=== PATIENT | female | born 1975 | race Caucasian/White ===

== ENCOUNTER 2017-05-09 00:18 | Emergency (ER) | payer MEDICAID ==
[~2017-05-09] VITALS: Ht 170.2 cm; Wt 68.0 kg
[2017-05-09 00:26] VITALS: BP_SYST 97
--- NOTE | 2017-05-09 01:06 | NUR ---
Patient to ER bed 6 to gown for evaluation. Side rails up. Report given to DARIA FONSECA.
--- NOTE | 2017-05-09 01:11 | NUR ---
Patient to ED for evaluation of flu-like symptoms, patient able to ambulate without difficulty with slow, steady gait. Will continue to observe and assess.
[2017-05-09 01:48] LABS: BASOPHILS # (AUTO) 0.2 K/uL (0.0-0.2); BASOPHILS % (AUTO) 2.5 % (0.0-2.0); EOSINOPHILS # (AUTO) 0.1 K/uL (0.0-0.4); HEMOGLOBIN 13.1 g/dL (12.0-16.0); LYMPHOCYTES % (AUTO) 14.5 % (20.5-51.5); MEAN CORPUSCULAR HEMOGLOBIN 29 pg (27-31); MEAN CORPUSCULAR HGB CONC 33 % (32-36); MEAN CORPUSCULAR VOLUME 90 fL (79.0-98.0); MONOCYTES # (AUTO) 0.5 K/uL (0.0-1.0); MONOCYTES % (AUTO) 6.9 % (1.7-9.3); NEUTROPHILS # (AUTO) 5.4 K/uL (1.8-7.7); NEUTROPHILS % (AUTO) 75.1 % (40.0-70.0); PLATELET COUNT (AUTO) 249 K/uL (130-430); RED BLOOD CELL COUNT(AUTO) 4.47 MIL/uL (4.2-6.2); WHITE BLOOD COUNT (AUTO) 7.2 K/uL (4.8-10.8)
--- NOTE | 2017-05-09 01:51 | NUR ---
Patient resting quietly in nad, family remains at bedside-awaiting lab results and dispo.
[2017-05-09 01:57] LABS: BILIRUBIN,URINE 1+ (NEGATIVE); BLOOD, URINE 3+ (NEGATIVE); CLARITY/URINE CLOUDY (CLEAR); COLOR,URINE YELLOW (YELLOW); GLUCOSE,URINE NEGATIVE (NEGATIVE); KETONES,URINE TRACE (NEGATIVE); LEUKOCYTE ESTERASE ,URINE 2+ (NEGATIVE); NITRITE, URINE NEGATIVE (NEGATIVE); PROTEIN URINE 2+ (NEGATIVE)
[2017-05-09 02:00] LABS: CALCIUM 8.6 mg/dL (8.4-11.0); CREATININE 0.73 mg/dL (0.55-1.30); POTASSIUM 3.8 mmol/L (3.5-5.1)
[2017-05-09 02:05] LABS: ALBUMIN 3.8 g/dL (3.4-4.8); TOTAL BILIRUBIN 0.9 mg/dL (0.0-1.0); TOTAL PROTEIN, SERUM 7.6 g/dL (6.4-8.3)
[2017-05-09 02:10] LABS: BACTERIA,URINE MANY /HPF (None Seen); MUCUS,URINE None Seen /LPF (None Seen)
--- NOTE | 2017-05-09 02:14 | NUR ---
ER at bedside examining patient.
[2017-05-09] MEDS ORDERED: NACL 0.9% 1,000 ML IV ONE (02:18)
[2017-05-09] MEDS ORDERED: ONDANSETRON HCL 4 MG/2 ML VIAL IVP ONE ×3 (02:30→03:45)
[2017-05-09] MEDS ORDERED: HYDROmorphone 1 MG INJ. 1 MG/ML AMPUL IVP ONE (02:30)
--- NOTE | 2017-05-09 02:40 | NUR ---
Patient to CT scan in stable condition, IVF infusing without difficulty-no redness or swelling noted at site. Awaiting lab results and dispo
[2017-05-09 02:45] LABS: PROTHROMBIN TIME 10.9 SECS (9.5-12.5)
--- NOTE | 2017-05-09 03:01 | NUR ---
Patient returned from CT scan in stable condition. Family at bedside-update/emotional support given, questions answered. IVF infusing without difficulty-no redness or swelling noted at site. Awaiting results of labs/CT and dispo.
--- NOTE | 2017-05-09 03:38 | NUR ---
Patient with large amount of emesis-approximately 400 ml of undigested food. Dr Thompson notified and verbal order for Zofran given and implemented. Linen changed, IVF infusing without difficulty-no redness or swelling noted at site.
[2017-05-09 04:32] VITALS: BP_SYST 91
--- NOTE | 2017-05-09 04:32 | NUR ---
Patient given written and verbal discharge instructions and verbalizes understanding. ER MD discussed with patient the results and treatment provided. Patient in stable condition. ID arm band removed. IV catheter removed intact and dressing applied, no active bleeding. Rx of Zofran,Imodium, and Bactrim given. Patient educated on pain management and to follow up with PMD. Pain Scale 0/10. Opportunity for questions provided and answered.
== END 2017-05-09 04:32 | disposition home or self-care (01) ==
LOC: SED 00:18
DX: K52.9 Noninfective gastroenteritis and colitis, unspecified (principal); E86.0 Dehydration; N39.0 Urinary tract infection, site not specified
CPT/HCPCS: 36415; 74176; 80053; 81000; 81025; 82150; 83690; 85025; 85610; 85730; 86710; 87086; 96361; 96374; 96375; 96376; 99285; J1170; J2405; J7030

== ENCOUNTER 2019-02-25 18:37 | Emergency (ER) | payer MEDICAID ==
[~2019-02-25] VITALS: Ht 172.7 cm; Wt 67.6 kg
[2019-02-25 18:50] VITALS: BP_SYST 116
[2019-02-25] MEDS ORDERED: ASPIRIN 81 MG TAB.CHEW PO ONE (19:15)
[2019-02-25 19:33] LABS: BASOPHILS % (AUTO) 0.6 % (0.0-2.0); EOSINOPHILS # (AUTO) 0.1 K/uL (0.0-0.4); EOSINOPHILS % (AUTO) 1.6 % (0.0-4.0); HEMATOCRIT 37.5 % (36-48); HEMOGLOBIN 12.2 g/dL (12.0-16.0); LYMPHOCYTES # (AUTO) 1.7 K/uL (1.0-5.5); LYMPHOCYTES % (AUTO) 27.1 % (20.5-51.5); MEAN CORPUSCULAR HEMOGLOBIN 29 pg (27-31); MEAN CORPUSCULAR HGB CONC 33 % (32-36); MEAN CORPUSCULAR VOLUME 90 fL (79.0-98.0); MONOCYTES # (AUTO) 0.6 K/uL (0.0-1.0); MONOCYTES % (AUTO) 9.3 % (1.7-9.3); NEUTROPHILS # (AUTO) 3.8 K/uL (1.8-7.7); NEUTROPHILS % (AUTO) 61.4 % (40.0-70.0); PLATELET COUNT (AUTO) 257 K/uL (130-430); RED BLOOD CELL COUNT(AUTO) 4.18 MIL/uL (4.2-6.2); RED CELL DISTRIBUTION WIDTH 14.2 % (9.0-15.0); WHITE BLOOD COUNT (AUTO) 6.3 K/uL (4.8-10.8)
[2019-02-25 19:39] LABS: CALCIUM 9.3 mg/dL (8.4-11.0); CREATININE 0.84 mg/dL (0.55-1.30); POTASSIUM 3.8 mmol/L (3.5-5.1)
[2019-02-25 19:45] LABS: ALBUMIN 3.3 g/dL (3.4-4.8); TOTAL BILIRUBIN 0.3 mg/dL (0.0-1.0)
[2019-02-25] MEDS ORDERED: MAG HYDROX/AL HYDROX/SIMETH 30 ML, DICYCLOMINE HCL 20 MG, LIDOCAINE VISCOUS 2% 15ML (PO... PO ONE ×3 (20:15)
[2019-02-25 21:30] VITALS: BP_SYST 122
== END 2019-02-25 21:30 | disposition home or self-care (01) ==
LOC: SED 18:37
DX: R07.89 Other chest pain (principal); K21.9 Gastro-esophageal reflux disease without esophagitis; M19.90 Unspecified osteoarthritis, unspecified site
CPT/HCPCS: 36415; 71045; 80053; 82550; 83880; 84484; 85025; 93005; 99284; J2001

== ENCOUNTER 2019-06-05 12:16 | Emergency (ER) | payer MEDICAID ==
[~2019-06-05] VITALS: Ht 172.7 cm; Wt 65.8 kg
[2019-06-05 12:16] VITALS: BP_SYST 97
[2019-06-05] MEDS ORDERED: DIPHENHYDRAMINE INJ 50 MG/ML VIAL IVP ONE (13:00)
[2019-06-05] MEDS ORDERED: cefTRIAXone 1 GM in D5W 50 ML IV ONE (13:00)
[2019-06-05] MEDS ORDERED: cefTRIAXone 1 GM VIAL ONE (13:10)
[2019-06-05 13:36] VITALS: BP_SYST 100
== END 2019-06-05 13:36 | disposition home or self-care (01) ==
LOC: SED 12:16
DX: S60.561A Insect bite (nonvenomous) of right hand, initial encounter (principal); S80.861A Insect bite (nonvenomous), right lower leg, initial encounter; S80.862A Insect bite (nonvenomous), left lower leg, initial encounter; L03.113 Cellulitis of right upper limb; W57.XXXA Bitten or stung by nonvenomous insect and other nonvenomous arthropods, initial encounter; Y93.89 Activity, other specified; Y92.89 Other specified places as the place of occurrence of the external cause; Y99.8 Other external cause status
CPT/HCPCS: 73130; 96365; 96375; 99283; J0696; J1200

== ENCOUNTER 2021-11-09 15:56 | Emergency (ER) | payer MEDICAID, SELFPAY ==
[~2021-11-09] VITALS: Ht 175.3 cm; Wt 70.3 kg
[2021-11-09 17:06] VITALS: BP_SYST 107
--- NOTE | 2021-11-09 17:14 | NUR ---
pt. bib daughter with c/o pain 05/18 to vagianl area and burning when urinates, pt. stated has also been voiding frequently, syptoms started monday
--- NOTE | 2021-11-09 17:35 | NUR ---
ER in triage examining patient.
[2021-11-09 17:42] LABS: BILIRUBIN,URINE NEGATIVE (NEGATIVE); BLOOD, URINE 2+ (NEGATIVE); COLOR,URINE ORANGE (YELLOW); GLUCOSE,URINE NEGATIVE (NEGATIVE); KETONES,URINE NEGATIVE (NEGATIVE); LEUKOCYTE ESTERASE ,URINE 2+ (NEGATIVE); NITRITE, URINE POSITIVE (NEGATIVE); PH,URINE 5.5 (5.0-8.0); PROTEIN URINE NEGATIVE (NEGATIVE)
[2021-11-09 17:46] LABS: CLARITY/URINE HAZY (CLEAR)
[2021-11-09 17:56] LABS: BACTERIA,URINE MODERATE /HPF (None Seen)
[2021-11-09] MEDS ORDERED: NITR-85 PO (18:22)
[2021-11-09] MEDS ORDERED: PHEN-726 PO (18:22)
[2021-11-09 18:29] VITALS: BP_SYST 107
--- NOTE | 2021-11-09 18:32 | NUR ---
Patient given written and verbal discharge instructions and verbalizes understanding. ER discussed with patient the results and treatment provided. Patient in stable condition. ID arm band removed. Rx of macrobid and pyridium given. Patient educated on pain management and to follow up with PMD. Pain Scale 7. Opportunity for questions provided and answered. Medication side effect fact sheet provided.
== END 2021-11-09 18:29 | disposition home or self-care (01) ==
LOC: SED 15:56
DX: N39.0 Urinary tract infection, site not specified (principal)
CPT/HCPCS: 81000; 81025; 87086; 99283